=== PATIENT | male | born 1975 | race Caucasian/White ===

== ENCOUNTER → 2020-11-02 | Outpatient (CLI) | payer BC ==
--- NOTE | 2020-11-02 11:00 | ECHOF ---
Referral Reason:R06.02 shortness of breath MEASUREMENTS -------- HEIGHT: 175.3 cm WEIGHT: 108.0 kg BP: RVIDd: 4.0 cm (< 3.3) IVSd: 1.4 cm (0.6 - 1.1) LVIDd: 3.4 cm (3.9 - 5.3) LVPWd: 1.4 cm (0.6 - 1.1) IVSs: 1.7 cm LVIDs: 2.3 cm LVPWs: 1.8 cm LAESV Index (A-L): 14.73 ml/m Ao Diam: 3.1 cm (2.0 - 3.7) AV Cusp: 2.0 cm (1.5 - 2.6) LA Diam: 3.7 cm (2.7 - 3.8) MV EXCURSION: 20.468 mm (> 18.000) MV EF SLOPE: 106 mm/s (70 - 150) EPSS: 0.2 cm MV E Jeffy: 0.62 m/s MV DecT: 137 ms MV A Jeffy: 0.47 m/s MV E/A Ratio: 1.32 RAP: 5.00 mmHg RVSP: 28.80 mmHg FINDINGS -------- Sinus rhythm. This was a technically adequate study. The left ventricular size is normal. There is moderate concentric left ventricular hypertrophy. O verall left ventricular systolic function is normal with, an EF between 55 - 60 %. The diastolic fi lling pattern is normal for the age of the patient 7.52. The right ventricle is moderately enlarged. Normal LA size by volume 22+/-6 ml/m2. The right atrium is mildly enlarged. Interatrial and interventricular septum intact. The aortic valve is trileaflet, and appears structurally normal. No aortic stenosis or regurgitation. There is no evidence of aortic regurgitation. There is no evidence of aortic stenosis. The mitral valve is normal. Mild mitral regurgitation is present. The tricuspid valve appears structurally normal. Mild tricuspid regurgitation present. There is n o evidence of pulmonary hypertension. The right ventricular systolic pressure, as measured by Doppl er, is 28.80mmHg. There is no pulmonic regurgitation present. The aortic root size is normal. IVC Not well visulized. There is no pericardial effusion. CONCLUSIONS -------- 1. There is moderate concentric left ventricular hypertrophy. 2. Overall left ventricular systolic function is normal with, an EF between 55 - 60 %. 3. The right ventricle is moderately enlarged. 4. Normal LA size by volume 22+/-6 ml/m2. 5. The right atrium is mildly enlarged. 6. The aortic valve is trileaflet, and appears structurally normal. No aortic stenosis or regurgitati on. 7. Mild mitral regurgitation is present. 8. Mild tricuspid regurgitation present. TENSILE TESTER: Eleanor Pinto RDCS
--- NOTE | 2020-11-02 12:20 | EST ---
EXERCISE STRESS AGE: 45 SEX: Male HT: 5'9" WT: 238 lbs. PROTOCOL: Brant STAGE: 4 DURATION OF EXERCISE: 10 minutes HEART RATE REST: 87 BLOOD PRESSURE REST: 117/76 MAXIMUM HEART RATE ACHIEVED: 169 MAXIMUM BLOOD PRESSURE: 174/66 85% MPHR: 150 100% MPHR: 176 METS: 11.7 CLINICAL INFORMATION: Baseline rhythm sinus mechanism, rate of 87, normal axis and intervals, normal electrocardiogram. Baseline blood pressure 117/76 mmHg. Patient exercised on Brant protocol for 10 minutes, reaching peak rate 169 beats per minute which is equal to 96% maximum predicted heart rate. Peak blood pressure 174/66 mmHg. Test was terminated secondary to fatigue. There was no chest pain. Electrocardiograph monitoring revealed no evidence of diagnostic ischemic ST deviation. CONCLUSION: Average exercise tolerance with normal electrocardiogram response to exercise. MMODL / IJN: [id number] / MTDD
== END | disposition home or self-care (01) ==
LOC: RADNMMAIN 08:41
PROVIDERS: ATTEND Family Medicine
DX: I08.1 Rheumatic disorders of both mitral and tricuspid valves (principal); G43.909 Migraine, unspecified, not intractable, without status migrainosus; Z88.0 Allergy status to penicillin
CPT/HCPCS: 93017; 93306

== ENCOUNTER → 2020-11-09 | Outpatient (CLI) | payer BC | END | disposition home or self-care (01) | LOC: LABPAT 08:21 | PROVIDERS: ATTEND Family Medicine | DX: Z01.812 Encounter for preprocedural laboratory examination (principal); Z03.818 Encounter for observation for suspected exposure to other biological agents ruled out | CPT/HCPCS: U0003; C9803; U0005 ==

== ENCOUNTER → 2020-11-16 | Day surgery (SDC) | payer BC ==
[2020-11-14 11:16] VITALS: BMI 34.2
[~2020-11-16] MED LIST: LACTATED RINGERS 1,000 ML IV SCH; LIDOCAINE 1% (10MG/ML) FOR IV START INTRADERMA PRN; PROPOFOL 10 MG/ML 20 ML VIAL IV ONE
[2020-11-16 08:03] VITALS: RESP 16; TEMP 96.9
--- NOTE | 2020-11-16 08:37 | P.PCN ---
Date of Procedure: 11/16/20 Preoperative Diagnosis: GERD Postoperative Diagnosis: Gastritis Duodenitis Esophagitis Procedure(s) Performed: EGD with biopsy Surgeon: Kia Spear Pathology: other (Biopsy of duodenum, antrum, esophagus) Condition: stable Disposition: same day Indications for Procedure: 45-year-old male presented with complaints of GERD. He was started on omeprazole and did again to see some relief from his symptoms. He presents today for upper endoscopy for further evaluation. Risks, benefits and alternatives were provided to the patient. He did provide consent prior to attending the endoscopy suite. Operative Findings: Gastritis Duodenitis Esophagitis Description of Procedure: The patient was brought into the endoscopy suite. The patient was placed in left lateral decubitus position and adequate sedation was achieved using conscious sedation. A bite block was placed and an endoscope was placed in the oropharynx and advanced under endoscopic visualization. The endoscope was advanced through the esophagus into the stomach, through the gastric antrum and into the pylorus. The third portion of the duodenum was visualized. The endoscope was then slowly withdrawn. The first portion of the duodenum was noted to have inflammatory changes. Biopsies were taken. The antrum was noted to have inflammatory changes. Biopsies taken. The gastric body distended normally and the gastric folds appeared normal and flattened with insufflation. A retroflexed view of the fundus and GE junction revealed no significant hiatal hernia. The esophagus appeared to have multiple inflammatory sites. Multiple biopsies were taken. Excess air was removed and the scope was withdrawn and the procedure was completed. The patient was then sent to PACU in stable condition.
[2020-11-16 08:57] VITALS: BP 114/79; PULSE 83
== END | disposition home or self-care (01) ==
LOC: ORWHC2ENDO 07:16
PROVIDERS: ATTEND Surgery
DX: K29.50 Unspecified chronic gastritis without bleeding (principal); K21.00 Gastro-esophageal reflux disease with esophagitis, without bleeding; K29.80 Duodenitis without bleeding; K20.0 Eosinophilic esophagitis; E78.5 Hyperlipidemia, unspecified; Z79.899 Other long term (current) drug therapy; Z88.0 Allergy status to penicillin; E78.00 Pure hypercholesterolemia, unspecified; Z90.89 Acquired absence of other organs; Z83.42 Family history of familial hypercholesterolemia; Z82.49 Family history of ischemic heart disease and other diseases of the circulatory system; Z80.9 Family history of malignant neoplasm, unspecified
CPT/HCPCS: 88305; 43239; J2704

== ENCOUNTER → 2021-02-20 | Outpatient (CLI) | payer BC ==
[2021-02-20 16:49] LABS: African American GFR (CKD) 84.7 (60.0-200.0); Albumin 4.5 g/dL (3.80-4.90); Albumin/Globulin Ratio 1.73 (1.60-3.17); Anion Gap 8.2 mmol/L (4.00-12.00); BUN/Creat Ratio 15.83 Ratio (12.00-20.00); Calcium 9.6 mg/dL (8.7-10.3); Carbon Dioxide 26.8 mmol/L (21.6-31.8); Globulin 2.6 g/dL (1.6-3.3); Non-African American GFR(CKD) 73.1 (60.0-200.0); Potassium 5.1 mmol/L (3.5-5.5); Total Bilirubin 0.5 mg/dL (0.2-1.2); Total Protein 7.1 g/dL (6.2-8.2)
== END | disposition home or self-care (01) ==
LOC: LABWHC1 07:31
PROVIDERS: ATTEND Family Medicine
DX: E78.5 Hyperlipidemia, unspecified (principal); R73.9 Hyperglycemia, unspecified
CPT/HCPCS: 36415; 80053; 83036

== ENCOUNTER → 2021-06-12 | Outpatient (CLI) | payer BC ==
[2021-06-12 17:58] LABS: Chol/HDL Ratio 3.73; LDL Cholesterol,Calculated 102.4 mg/dL (0.0-131.0); VLDL Calculation 28.6 mg/dL (5.00-40.00)
== END | disposition home or self-care (01) ==
LOC: LABWHC1 07:04
PROVIDERS: ATTEND Family Medicine
DX: E78.5 Hyperlipidemia, unspecified (principal)
CPT/HCPCS: 36415; 80061

== ENCOUNTER → 2024-06-08 | Outpatient (CLI) | payer MEDICAID | END | disposition home or self-care (01) | LOC: LABWHC1 15:05 | PROVIDERS: ATTEND Family Medicine | DX: R73.03 Prediabetes (principal) | CPT/HCPCS: 36415; 83036 ==

== ENCOUNTER → 2024-06-30 | Outpatient (CLI) | payer MEDICAID ==
--- NOTE | 2024-06-30 10:44 | MR ---
EXAMINATION TYPE: MR knee RT wo con DATE OF EXAM: 06/30/2024 COMPARISON: None HISTORY: Right knee pain, anterior aspect, x 6mos. No hx of tauma. TECHNIQUE: Multiplanar, multisequence imaging of the right knee is performed without IV contrast. FINDINGS: There is no bone contusion or fracture. There is no joint effusion. There is a vertical tear through the body of the medial meniscus. There is a mild strain of the media l collateral ligament. The lateral collateral ligament and cruciate ligaments are intact. There is mild chondromalacia of the articular cartilage of the medial compartment. The patellar cartilage is well preserved. The quadriceps and patellar tendons are intact. IMPRESSION: 1. Tear of the medial meniscus. 2. Mild strain of the medial collateral ligament. 3. Mild chondromalacia of the medial compartment cartilage [facility], , 06/30/2024 10:41 AM
== END | disposition home or self-care (01) ==
LOC: RADMRIMAIN 07:29
PROVIDERS: ATTEND Orthopaedic Surgery
DX: M25.561 Pain in right knee

== ENCOUNTER → 2024-08-05 | Outpatient (CLI) | payer MEDICAID ==
[2024-08-05 15:03] LABS: HCT 45.1 % (39.6-50.0); HGB 15.2 g/dL (13.0-17.0); MCH 30.8 pg (27.0-32.0); MCHC 33.7 g/dL (32.0-37.0); MCV 91.5 FL (80.0-97.0); Mean Platelet Volume 12.3 FL (9.5-12.2); NRBC Per 100 WBC 0 X 10*3/uL (0.00-0.01); Platelet Count 228 X 10*3/uL (140-440); RBC 4.93 X 10*6/uL (4.40-5.60); RDW 12.5 % (11.5-14.5); WBC 8.41 X 10*3/uL (4.50-10.00)
[2024-08-05 15:04] LABS: Basophils # (A) 0.12 X 10*3/uL (0.00-0.10); Basophils % (A) 1.4 %; Eosinophils # (A) 0.34 X 10*3/uL (0.04-0.35); Lymphocytes # (A) 3.11 X 10*3/uL (0.90-5.00); Monocytes # (A) 1.17 X 10*3/uL (0.20-1.00); Monocytes % (A) 13.9 %; Neutrophils # (A) 3.63 X 10*3/uL (1.80-7.70); Neutrophils % (A) 43.2 %
[2024-08-05 16:14] LABS: Anion Gap 11.7 mmol/L (4.00-12.00); Carbon Dioxide 24.3 mmol/L (21.6-31.8); Potassium 4.9 mmol/L (3.5-5.5)
== END | disposition home or self-care (01) ==
LOC: LABPAT 12:09
PROVIDERS: ATTEND Orthopaedic Surgery
DX: Z01.812 Encounter for preprocedural laboratory examination (principal); M23.91 Unspecified internal derangement of right knee
CPT/HCPCS: 36415; 80051; 85025

== ENCOUNTER → 2024-08-18 | Day surgery (SDC) | payer MEDICAID ==
[2024-08-15 11:33] VITALS: BMI 35.7
[~2024-08-18] MED LIST changes: +KETOROLAC 15 MG/ML 1 ML VIAL ONE; -LACTATED RINGERS 1,000 ML IV SCH; +LIDOCAINE 1% INJ 10MG/ML (20 ML MDV) ONE; +droPERidol 5 MG/2 ML VIAL IVP ONE; +fentaNYL (PF) 50 MCG/ML 2 ML AMP ONE
--- NOTE | 2024-08-18 00:53 | HP ---
HISTORY AND PHYSICAL PROPOSED DATE OF SURGERY: 08/18/2024. HISTORY OF PRESENT ILLNESS: Chandler Carlos is a 48-year-old gentleman seen with progressive right knee pain. We discussed options regarding treatment. He elected to proceed with right knee arthroscopy. Consent regarding procedure was obtained. PAST MEDICAL HISTORY: Hyperlipidemia, gastroesophageal reflux disease. SURGICAL HISTORY: Tonsillectomy. DAILY MEDICATIONS: 1. Atorvastatin. 2. Loratadine. 3. Omeprazole. ALLERGIES: Penicillin. SOCIAL HISTORY: Denies tobacco use. PHYSICAL EVALUATION OF RIGHT KNEE: Range of motion is 0 to 130 degrees. Mild effusion. Tenderness, medial joint line. Positive medial Juan's. Ligaments stable. Hip rotation without pain. Distal neurovascular exam is intact. IMAGING STUDIES: Radiographs of the right knee revealed moderate osteoarthritis. MRI of right knee revealed medial meniscal tear. IMPRESSION: 1. Internal derangement of right knee with medial meniscal tear. 2. Hypertension. PLAN: Right knee arthroscopy with partial medial meniscectomy and debridement. MMODL / IJN: [id number] /
[2024-08-18] MEDS: IV FLUID CONTINUATION 1,000 ML IV ONE (11:59)
[2024-08-18] MEDS: ONDANSETRON 4 MG/2 ML VIAL IVP ONE (12:37)
[2024-08-18] MEDS: LACTATED RINGERS 1,000 ML IV SCH (12:38)
[2024-08-18] MEDS: DEXAMETHASONE SOD PHOSPHATE 4 MG/ML 1 ML VIAL IV ONE (12:38)
[2024-08-18] MEDS: BUPIVACAINE (PF) 0.25% 30 ML VIAL SQ ONE (14:22)
[2024-08-18 14:47] VITALS: TEMP 97.1
--- NOTE | 2024-08-18 14:48 | P.OP ---
Date of Procedure: 08/18/24 Preoperative Diagnosis: Internal derangement right knee Postoperative Diagnosis: 1. Tear medial and lateral meniscus right knee 2. Grade IV chondromalacia medial femoral condyle right knee 3. Reactive synovitis medial, lateral and suprapatellar compartments right knee Procedure(s) Performed: 1. Arthroscopic partial medial and lateral meniscectomy right knee 2. Arthroscopic microfracture medial femoral condyle right knee 3. Arthroscopic partial synovectomy medial, lateral and suprapatellar compartments right knee Anesthesia: BOBA, local Surgeon: Cosmo Henderson Estimated Blood Loss (ml): 6 Pathology: none sent Condition: stable Disposition: PACU Indications for Procedure: 48-year-old patient who was seen with progressive right knee pain. After having treatment options discussed, he elected to proceed with arthroscopy. Operative Findings: See description of procedure Description of Procedure: Patient was taken to the operative suite. Patient underwent a general anesthetic by the department of anesthesia. Patient was given preoperative antibiotics. The right lower extremity was placed in a well-padded arthroscopic leg roblero. The right leg was prepped and draped in the normal sterile orthopedic fashion. A lateral parapatellar and suprapatellar incision was made. Trochars were inserted. Arthroscopy was initiated. Suprapatellar pouch revealed diffuse thick reactive synovitis. The patellofemoral joint appeared to articulate congruently. There was grade I/II chondromalacia of the patellofemoral joint without tears. The scope was guided into the medial gutter. No loose bodies or plica were identified. The scope was then guided into the medial compartment. A medial parapatellar incision was made. Trocar inserted followed by probe. There was a complex tear involving the posterior h orn and mid bodies of the medial meniscus. There were grade III/IV chondromalacia changes medial femoral condyle with diffuse osteochondral flap tears present. There was thick reactive synovitis anteriorly. I performed a partial medial meniscectomy getting down to stable meniscal tissue. I performed a chondroplasty of the medial femoral condyle getting down to stable osteochondral tissue. I performed a partial synovectomy decompressing the reactive synovitis. I did note an area of exposed bone medial femoral condyle measuring about a centimeter. I did use a microfracture awl and I performed a microfracture to that area penetrating the bone with resultant bleeding at the microfracture site. The residual meniscus was probed and was found to be stable. The residual osteochondral surface was stable. There was good decompression of the synovitis. Scope and probe were then guided into the intercondylar notch. Cruciates were identified, probed and found to be stable. The scope and probe were then guided into lateral compartment. There was a radial tear mid body lateral meniscus. There was very mild grade I chondromalacia lateral compartment. There was some thick reactive synovitis anteriorly. I performed a partial lateral meniscectomy getting down to stable meniscal tissue. I performed a partial synovectomy decompressing the reactive synovitis. The residual meniscus was stable. There was good decompression of the synovitis. The scope was in guided back into the suprapatellar compartment. I reduced a motorized shaver into the suprapatellar compartment. I debrided some piecemeal fragments of meniscus that I encountered. I performed a partial synovectomy. The shaver was removed. There appeared to be good decompression of the synovitis. I now took 1 more look around the entire knee, no residual debris. Instruments were now removed from the joint. The joint was infiltrated with .25% Marcaine. Steri-Strips were applied to the portal sites. Sterile dressings were applied. The patient was placed into a MONSE hose. No tourniquet was utilized. The patient was awakened, transferred to a bed and taken to recovery stable satisfactory condition.
[2024-08-18] MEDS: HYDROmorphone 0.5 MG/0.5 ML SYRINGE IVP PRN (15:06)
[2024-08-18 15:45] VITALS: RESP 16
[2024-08-18 16:00] VITALS: BP 121/85; PULSE 80
== END | disposition home or self-care (01) ==
LOC: OR 11:38
PROVIDERS: ATTEND Orthopaedic Surgery
DX: S83.241A Other tear of medial meniscus, current injury, right knee, initial encounter (principal); S83.281A Other tear of lateral meniscus, current injury, right knee, initial encounter; M65.961 Unspecified synovitis and tenosynovitis, right lower leg; I25.10 Atherosclerotic heart disease of native coronary artery without angina pectoris; I10 Essential (primary) hypertension; E78.5 Hyperlipidemia, unspecified; K21.9 Gastro-esophageal reflux disease without esophagitis; Z90.89 Acquired absence of other organs; Z88.0 Allergy status to penicillin; Z79.02 Long term (current) use of antithrombotics/antiplatelets; Z79.899 Other long term (current) drug therapy; X58.XXXA Exposure to other specified factors, initial encounter
CPT/HCPCS: 29880; 29879; J1100; J0690; J2405; J2003; J3010; J1885; J2704; J1171; J0665